=== PATIENT | male | born 1955 | race Hispanic/Latino ===

== ENCOUNTER 2019-04-16 10:01 | Emergency (ER) | payer SELFPAY ==
--- NOTE | 2019-04-16 10:54 | EKG ---
Test Date: 2019-04-16 Test Time: 10:35:22 Regulatory Submissions Associate: LIYAH MEASUREMENT RESULTS: Intervals: Rate: 83 MO: 156 QRSD: 86 QT: 388 QTc: 455 [place]: P: 82 MO: 156 QRS: 88 T: 80 INTERPRETIVE STATEMENTS: Normal sinus rhythm Normal ECG No previous ECG available for comparison Electronically Signed On 04-16-19 10:54:10 CDT by Jaime Fields
[2019-04-16] MEDS ORDERED: NA CHLORIDE 0.9% 1,000 ML ONE (10:57)
[2019-04-16 11:02] LABS: Absolute Lymphocytes (CBC) 0.9 K/uL (0.7-4.9); Basophils % 0.9 % (0-1.3); Hematocrit 34.4 % (39.6-49.0); Lymphocytes % 12.6 % (15.3-44.8); MPV 7.7 fL (7.6-11.3); RBC Red Blood Cell Count 3.67 M/uL (4.33-5.43)
[2019-04-16 11:04] LABS: Protime INR 1.08
--- NOTE | 2019-04-16 11:27 | RAD REPORT ---
EXAM DESCRIPTION: RAD - Chest Single View - 04/16/2019 11:04 am CLINICAL HISTORY: COUGH Chest pain. COMPARISON: No comparisons FINDINGS: Portable technique limits examination quality. Prominent emphysema is present. The heart is normal in size. No displaced fractures. IMPRESSION: Prominent COPD.
[2019-04-16 11:51] LABS: ALT/SGPT 9 U/L (12-78); AST/SGOT 13 U/L (15-37); Albumin 3.4 g/dL (3.4-5.0); Alkaline Phosphatase 95 U/L (45-117); BUN Blood Urea Nitrogen 19 mg/dL (7-18); Bicarbonate 28 mmol/L (21-32); Bilirubin Direct 0.2 mg/dL (0-0.2); Bilirubin Total 0.7 mg/dL (0.2-1.0); Creatine Phosphokinase 59 U/L (39-308); Glucose Level 97 mg/dL (74-106); Magnesium 2.3 mg/dL (1.8-2.4); NT PRO-BNP 184 pg/mL (<125); Potassium 3.5 mmol/L (3.5-5.1); Protein, Total 7.6 g/dL (6.4-8.2); Sodium Level 136 mmol/L (136-145); Troponin (Emerg Dept Use Only) < 0.02 ng/mL (0.0-0.045)
--- NOTE | 2019-04-16 12:39 | ER ---
Nurse's Notes [facility] Name: Kulwant Mccray Age: 63 yrs Sex: Male : 1955 Arrival Date: 04/16/2019 Time: 10:04 Bed 15 Private MD: Diagnosis: Weakness Presentation: 04/16 10:33 Presenting complaint: daughter reports that patient has had a decreased appetite since ss he had a stroke in July 2018. Noticeable weight loss x 1 month, "spitting up gunk" more recently and blood tinged sputum episode some time last week. Patient has a history of unknown neck cancer, and had lymph nodes removed years ago. Transition of care: patient was not received from another setting of care. Onset of symptoms is unknown. Risk Assessment: Do you want to hurt yourself or someone else? Patient reports no desire to harm self or others. Initial Sepsis Screen: Does the patient meet any 2 criteria? No. Patient's initial sepsis screen is negative. Does the patient have a suspected source of infection? No. Patient's initial sepsis screen is negative. Care prior to arrival: None. 10:33 Acuity: JENNIFER 3 ss 10:33 Method Of Arrival: Ambulatory ss Historical: - Allergies: 10:36 No Known Allergies; ss - Home Meds: 10:36 None [Active]; ss - PMHx: 10:36 Neck CA; CVA July 2018; ss - PSHx: 10:36 lymph nodes removed from neck; ss - Immunization history:: Flu vaccine is not up to date. - Social history:: Smoking status: Patient uses tobacco products, smokes one-half pack cigarettes per day. - Ebola Screening: : Patient denies exposure to infectious person Patient denies travel to an Ebola-affected area in the 21 days before illness onset. Screenin:39 Abuse screen: Denies threats or abuse. Denies injuries from another. Nutritional ca1 screening: No deficits noted. Tuberculosis screening: No symptoms or risk factors identified. Fall Risk IV access (20 points). Gait- Weak (10 pts.). Total Rogers Fall Scale indicates Low Risk Score (25-44 pts). Fall prevention measures have been instituted. Side Rails Up X 2 Family Present and informed to notify staff if they need to leave bedside. Assessment: 10:39 General: Appears in no apparent distress. emaciated, Behavior is calm, cooperative, ca1 appropriate for age. General: Reports fatigue for >3 days. Pain: Denies pain. Neuro: Level of Consciousness is awake, alert, obeys commands, Oriented to person, place, time, situation, Appropriate for age. Cardiovascular: Heart tones S1 S2 present Capillary refill < 3 seconds Rhythm is sinus rhythm. Respiratory: Airway is patent Respiratory effort is even, unlabored, Respiratory pattern is regular, symmetrical, Breath sounds are clear bilaterally. GI: Abdomen is flat, non-distended, Bowel sounds present X 4 quads. Abd is soft and non tender X 4 quads. Reports anorexia, "spitting up more". : No deficits noted. No signs and/or symptoms were reported regarding the genitourinary system. EENT: No deficits noted. No signs and/or symptoms were reported regarding the EENT system. Derm: Skin is intact, is healthy with good turgor, Skin is pink, warm \\T\\ dry. Musculoskeletal: Circulation, motion, and sensation intact. Capillary refill < 3 seconds, Range of motion: intact in all extremities. 11:22 Reassessment: Patient appears in no apparent distress at this time. Patient and/or ca1 family updated on plan of care and expected duration. Pain level reassessed. Patient is alert, oriented x 3, equal unlabored respirations, skin warm/dry/pink. Family at bedside. Pt requested soup, notified provider and said yes. 12:55 Reassessment: Patient appears in no apparent distress at this time. Patient and/or ca1 family updated on plan of care and expected duration. Pain level reassessed. Patient is alert, oriented x 3, equal unlabored respirations, skin warm/dry/pink. Vital Signs: 10:36 BP 91 / 68; Pulse 81; Resp 16; Temp 98.0(TE); Pulse Ox 100% on R/A; Pain 0/10; ss 10:36 BP 101 / 71; ss 11:22 BP 119 / 68; Pulse 67; Resp 18 S; Pulse Ox 100% on R/A; ca1 12:55 BP 100 / 69; Pulse 71; Resp 16 S; Pulse Ox 100% on R/A; ca1 ED Course: 10:04 Patient arrived in ED. mr 10:05 Marianela Delong, ANAYA is PHCP. kb 10:05 Rohan Rankin MD is Attending Physician. kb 10:27 Daysi Navarrete, RN is Primary Nurse. ca1 10:35 Triage completed. ss 10:39 Patient has correct armband on for positive identification. Placed in gown. Bed in low ca1 position. Call light in reach. Side rails up X 1. security monitor on. Pulse ox on. NIBP on. Warm blanket given. 10:39 No provider procedures requiring assistance completed. Missed attempt(s): 20 gauge in ca1 right antecubital area. Bleeding controlled, band aid applied, catheter tip intact. 10:45 Arm band placed on. EKG completed in triage. Results shown to MD. ca1 10:48 Initial lab(s) drawn, by me, sent to lab. EKG done, by ED staff, reviewed by Marianela JULIEN. Inserted saline lock: 22 gauge in right forearm, using aseptic technique. Blood collected. 11:04 XRAY Chest (1 view) In Process Unspecified. EDMS 12:57 IV discontinued, intact, bleeding controlled, No redness/swelling at site. Pressure ca1 dressing applied. Administered Medications: 11:02 Drug: NS 0.9% 1000 ml Route: IV; Rate: 1000 ml; Site: right forearm; ca1 12:29 Follow up: Urine output 50 ml; Response: No adverse reaction; IV Status: Completed ca1 infusion; IV Intake: 1000ml Intake: 12:29 IV: 1000ml; Total: 1000ml. ca1 Output: 12:29 Urine: 50ml; Total: 50ml. ca1 Outcome: 12:38 Discharge ordered by MD. kb 12:57 Discharged to home via wheelchair, with family. ca1 12:57 Condition: stable 12:57 Discharge instructions given to patient, Instructed on discharge instructions, follow up and referral plans. Demonstrated understanding of instructions, follow-up care. 12:58 Patient left the ED. ca1 Signatures: Dispatcher [employer] EDMS Omar Alvarez Kristin, FNP-C FNP-Ckb Scarlett BlackmonDorothea, RN RN ss Daysi Navarrete, SUNG RN ca1
--- NOTE | 2019-04-16 12:39 | EDPHYS ---
Physician Documentation [facility] Name: Kulwant Mccray Age: 63 yrs Sex: Male : 1955 Arrival Date: 04/16/2019 Time: 10:04 Bed 15 Private MD: ROSALVA Physician Rohan Rankin HPI: 04/16 10:54 This 63 yrs old Male presents to ER via Ambulatory with complaints of kb weakness, decreased appetite. 10:54 The patient presents with generalized weakness. Onset: The symptoms/episode kb began/occurred 1 month(s) ago, and became worse 3 day(s) ago. Context: occurred at home. Modifying factors: The symptoms are alleviated by nothing, the symptoms are aggravated by nothing. Associated signs and symptoms: Pertinent positives: weakness, decreased appetite, weight loss. Severity of symptoms: At their worst the symptoms were moderate in the emergency department the symptoms are unchanged. Patient's baseline: Neuro: alert and fully oriented, Motor: no deficits, Ambulation: walks without assistance, Speech: normal, The patient has a previous history of CVA. The patient has not experienced similar symptoms in the past. The patient has not recently seen a physician. Daughter reports pt has been weak, has not been eating much and has lost weight over the last month. Reports the weakness has been worse over the last 3 days. States pt normally gets up on his own, but has been needing some help recently. Historical: - Allergies: 10:36 No Known Allergies; ss - Home Meds: 10:36 None [Active]; ss - PMHx: 10:36 Neck CA; CVA July 2018; ss - PSHx: 10:36 lymph nodes removed from neck; ss - Immunization history:: Flu vaccine is not up to date. - Social history:: Smoking status: Patient uses tobacco products, smokes one-half pack cigarettes per day. - Ebola Screening: : Patient denies exposure to infectious person Patient denies travel to an Ebola-affected area in the 21 days before illness onset. ROS: 10:52 ENT: Negative for injury, pain, and discharge, Neck: Negative for injury, pain, and kb swelling, Cardiovascular: Negative for chest pain, palpitations, and edema, Respiratory: Negative for shortness of breath, cough, wheezing, and pleuritic chest pain, Abdomen/GI: Negative for abdominal pain, nausea, vomiting, diarrhea, and constipation, Back: Negative for injury and pain, MS/Extremity: Negative for injury and deformity, Skin: Negative for injury, rash, and discoloration. 10:52 Constitutional: Positive for poor PO intake, weight loss. 10:52 : Positive for foul smelling urine, dark urine. 10:52 Neuro: Positive for weakness. Exam: 10:51 ECG was reviewed by the Attending Physician. kb 10:53 Head/Face: Normocephalic, atraumatic. ENT: Nares patent. No nasal discharge, no kb septal abnormalities noted. Tympanic membranes are normal and external auditory canals are clear. Oropharynx with no redness, swelling, or masses, exudates, or evidence of obstruction, uvula midline. Mucous membranes moist. Neck: Trachea midline, no thyromegaly or masses palpated, and no cervical lymphadenopathy. Supple, full range of motion without nuchal rigidity, or vertebral point tenderness. No Meningismus. Chest/axilla: Normal chest wall appearance and motion. Nontender with no deformity. No lesions are appreciated. Cardiovascular: Regular rate and rhythm with a normal S1 and S2. No gallops, murmurs, or rubs. Normal PMI, no JVD. No pulse deficits. Respiratory: Lungs have equal breath sounds bilaterally, clear to auscultation and percussion. No rales, rhonchi or wheezes noted. No increased work of breathing, no retractions or nasal flaring. Abdomen/GI: Soft, non-tender, with normal bowel sounds. No distension or tympany. No guarding or rebound. No evidence of tenderness throughout. Back: No spinal tenderness. No costovertebral tenderness. Full range of motion. Skin: Warm, dry with normal turgor. Normal color with no rashes, no lesions, and no evidence of cellulitis. MS/ Extremity: Pulses equal, no cyanosis. Neurovascular intact. Full, normal range of motion. Neuro: Awake and alert, GCS 15, oriented to person, place, time, and situation. Cranial nerves II-XII grossly intact. Motor strength 5/5 in all extremities. Sensory grossly intact. Cerebellar exam normal. Normal gait. 10:53 Constitutional: The patient appears alert, awake, emaciated. Vital Signs: 10:36 BP 91 / 68; Pulse 81; Resp 16; Temp 98.0(TE); Pulse Ox 100% on R/A; Pain 0/10; ss 10:36 BP 101 / 71; ss 11:22 BP 119 / 68; Pulse 67; Resp 18 S; Pulse Ox 100% on R/A; ca1 12:55 BP 100 / 69; Pulse 71; Resp 16 S; Pulse Ox 100% on R/A; ca1 MDM: 10:19 Patient medically screened. kb 10:54 Data reviewed: vital signs, nurses notes. Data interpreted: Pulse oximetry: on room air kb is 100 %. Interpretation: normal. 12:20 Counseling: I had a detailed discussion with the patient and/or guardian regarding: the kb historical points, exam findings, and any diagnostic results supporting the discharge/admit diagnosis, lab results, radiology results, the need for outpatient follow up, a family practitioner, to return to the emergency department if symptoms worsen or persist or if there are any questions or concerns that arise at home. ED course: Family educated on need for follow up with PCP. Pt and family educated on diagnostic results. Pt encouraged to increase caloric intake and supplement intake with ensure or something similar. Verbal understanding of all instructions received. . 04/16 10:31 Order name: Basic Metabolic Panel; Complete Time: 11:54 kb 04/16 10:31 Order name: CBC with Diff; Complete Time: 11:08 kb 04/16 10:31 Order name: LFT's; Complete Time: 11:54 kb 04/16 10:31 Order name: Magnesium; Complete Time: 11:54 kb 04/16 10:31 Order name: NT PRO-BNP; Complete Time: 11:54 kb 04/16 10:31 Order name: PT-INR; Complete Time: 11:08 kb 04/16 10:31 Order name: Troponin (emerg Dept Use Only); Complete Time: 11:54 kb 04/16 10:31 Order name: XRAY Chest (1 view); Complete Time: 11:28 kb 04/16 10:31 Order name: EKG; Complete Time: 10:32 kb 04/16 10:31 Order name: Cardiac monitoring; Complete Time: 10:49 kb 04/16 10:31 Order name: EKG - Nurse/Tech; Complete Time: 10:49 kb 04/16 10:31 Order name: CPK; Complete Time: 11:54 kb 04/16 12:31 Order name: Urine Dipstick--Ancillary (enter results); Complete Time: 12:46 ss 04/16 10:31 Order name: IV Saline Lock; Complete Time: 10:49 kb 04/16 10:31 Order name: Labs collected and sent; Complete Time: 10:49 kb 04/16 10:31 Order name: O2 Per Protocol; Complete Time: 10:49 kb 04/16 10:31 Order name: O2 Sat Monitoring; Complete Time: 10:49 kb 04/16 10:53 Order name: Urine Dipstick-Ancillary (obtain specimen); Complete Time: 12:29 kb EC:51 Rate is 83 beats/min. Rhythm is regular, Normal Sinus Rhythm. QRS [place] is Normal. CA kb interval is normal at 156 msec. QRS interval is normal at 86 msec. QT interval is normal at 388 msec. Reviewed by me. Administered Medications: 11:02 Drug: NS 0.9% 1000 ml Route: IV; Rate: 1000 ml; Site: right forearm; ca1 12:29 Follow up: Urine output 50 ml; Response: No adverse reaction; IV Status: Completed ca1 infusion; IV Intake: 1000ml Disposition: 04/17 07:23 Co-signature as Attending Physician, Rohan Rankin MD I agree with the assessment and ryan plan of care. Disposition: 04/16/19 12:38 Discharged to Home. Impression: Weakness. - Condition is Stable. - Discharge Instructions: Weakness, [id number]. - Medication Reconciliation Form, Thank You Letter, Antibiotic Education, Prescription Opioid Use form. - Follow up: Private Physician; When: 2 - 3 days; Reason: Recheck today's complaints, Continuance of care, Re-evaluation by your physician. Follow up: Emergency Department; When: As needed; Reason: Worsening of condition. Signatures: Dispatcher [employer] EDOR Marianela Delong, IT SECURITY ANALYST-C LORENA-Rohan Payton MD MD cha Smirch, Shelby, RN RN ss Daysi Navarrete RN RN ca1 Corrections: (The following items were deleted from the chart) 04/16 11:01 10:54 This 63 yrs old Male presents to ER via Ambulatory with complaints of kb Vomiting. kb 12:58 12:38 04/16/2019 12:38 Discharged to Home. Impression: Weakness. Condition is Stable. ca1 Forms are Medication Reconciliation Form, Thank You Letter, Antibiotic Education, Prescription Opioid Use. Follow up: Private Physician; When: 2 - 3 days; Reason: Recheck today's complaints, Continuance of care, Re-evaluation by your physician. Follow up: Emergency Department; When: As needed; Reason: Worsening of condition. kb
[2019-04-16 12:41] LABS: Urine Blood NEGATIVE (NEG); Urine Glucose NEGATIVE (NEG); Urine Protein 2+ (NEG); Urine Specific Gravity >1.030 (1.005-1.030); Urine pH 5.5 (5.0-7.0)
== END 2019-04-16 12:58 | disposition home or self-care (01) ==
LOC: ER 10:01
DX: R53.1 Weakness (principal); F17.210 Nicotine dependence, cigarettes, uncomplicated
CPT/HCPCS: 36415; 71045; 80048; 80076; 81003; 82550; 83735; 83880; 84484; 85025; 85610; 93005; 96360; 99284; J7030